=== PATIENT | male | born 1975 | race African-American/Black ===

== ENCOUNTER 2016-12-11 20:00 | Inpatient (IN) | payer OTHER ==
--- NOTE | ~2016-12-11 | PN ---
Unit #: [id number] #: [id number] Patient: SAUMYA HAMILTON [id number] [facility] [address] [place] [address] [id number] MR#: [id number] NAME: SAUMYA HAMILTON ROOM: P212 Age: 41 Sex: M Admission Date: 12/12/2016 : 1975 Attending Physician: Roney Tena M.D. Admitting Physician: Roney Tena M.D. Primary Care Physician: Gely Courtney PROGRESS NOTES DATE 12/13/2016 DISCUSSION The patient is abed today. He admits that he has been noncompliant with medications since his discharge from the hospital. He states that he does not wish to return home as he has "not been getting along with his mother," but I have (1) his expectations regarding what this facility can and cannot provide with regards to assistance with housing. Dictated by... Roney Tena M.D. CB/elaine TD: 12/13/2016 13:49 JOB #: [id number] [facility] PROGRESS NOTES Page 1 of 1 X Roney Tena MD PROGRESS NOTE
--- NOTE | ~2016-12-11 | PA ---
Unit #: [id number] #: [id number] Patient: SAUMYA HAMILTON [id number] [place] [address] [id number] I MR#: [id number] NAME: SAUMYA HAMILTON ROOM: [facility] Age: 41 Sex: M Admission Date: 12/12/2016 : 1975 Date of Assessment: 12/12/2016 Attending Physician: Roney Tena M.D. Admitting Physician: Roney Tena M.D. Primary Care Physician: Joey De Luna M.D. PSYCHIATRIC ASSESSMENT IDENTIFYING INFORMATION The patient is a 41-year-old male admitted to the [address] [place] [address] Unit with increasing abuse of psychoactive substances, suicidal ideation, and psychotic thinking. CHIEF COMPLAINT "I ain't getting along too good." INFORMANT(S) Patient, reliability is fair. HISTORY OF PRESENT ILLNESS The patient is a 41-year-old male who carries a diagnosis of schizoaffective disorder as well as polysubstance dependence. The patient has been recently not compliant with prescribed Seroquel and has been abusing multiple substances including alcohol, cocaine, and Lortabs. The patient reports that because of this behavior he has "not been getting along with his mother," and it was recommended that he come to this facility by his mother yesterday. The patient was last admitted to this facility in early July of this year under similar circumstances. He continues to endorse positive suicidal ideation when seen today. For more complete history of present illness, please refer to previously dictated notes. PAST PSYCHIATRIC HISTORY Reviewed, no changes. PAST MEDICAL HISTORY Reviewed, no changes. MEDICATIONS Seroquel. ALLERGIES Aspirin. FAMILY HISTORY Reviewed, no changes. SOCIAL HISTORY Reviewed, no changes. MENTAL STATUS EXAMINATION Unit #: [id number] #: [id number] Patient: SAUMYA HAMILTON Examination at this time reveals the patient to be a well-developed well-nourished male appearing stated age. He is in no apparent physical distress at the time of examination. He is mildly groggy, but arouses without difficulty. He is oriented in all spheres. The patient's mood is dysphoric, his affect blunted. Speech is generally well-coherent. There are no gross deficits in memory or cognition noted. The patient is generally cooperative during interview. He is currently endorsing positive suicidal ideation. He denies homicidal ideation. He reports positive auditory hallucinations. His judgment and insight appear to be somewhat impaired. No signs or symptoms of withdrawal are at this point in evidence. ASSETS AND LIABILITIES The patient's assets: Motivation for change. Liabilities: Ongoing substance use. Poor compliance with treatment. DIAGNOSTIC IMPRESSION 1. Schizoaffective disorder. 2. Cocaine use disorder. 3. Opioid use disorder. 4. Alcohol use disorder. TREATMENT PLAN The patient remains hospitalized for safety and stabilization. We have restarted the patient's previously prescribed Seroquel, and routine detoxification protocol for alcohol is in place. The patient will participate in appropriate order of milieu activities. ESTIMATED LENGTH OF STAY 5 to 7 days. Dictated by... Roney Tena M.D. RENATO/lopez TD: 12/12/2016 13:22 JOB #: [id number] PSYCHIATRIC ASSESSMENT Page 1 of 1 X Roney Tena MD X PSYCHIATRIC ASSESSMENT
--- NOTE | ~2016-12-11 | HP ---
Unit #: [id number] #: [id number] Patient: RUY HAMILTON [id number] [place] [address] [id number] I MR#: [id number] NAME: RUY HAMILTON ROOM: P212 Age: 41 Sex: M Admission Date: 12/12/2016 : 1975 Attending Physician: Roney Tena M.D. Admitting Physician: Roney Tena M.D. Primary Care Physician: Joey De Luna M.D. HISTORY AND PHYSICAL HISTORY OF PRESENT ILLNESS Ruy is a 41 year old admitted to [address] [place] [address] because of his continued polysubstance abuse which includes cocaine and smoking methamphetamine. PAST MEDICAL HISTORY 1. Long history of poly-illicit substance abuse. 2. History of alcohol abuse. 3. High blood pressure. 4. GERD. PAST SURGICAL HISTORY 1. Left inguinal hernia repair. 2. T and A. ALLERGIES Aspirin (rash). SOCIAL HISTORY He does not smoke. Drinks alcohol frequently to excess. Admits to a history of illicit substance abuse. FAMILY HISTORY Medically noncontributory. REVIEW OF SYSTEMS CONSTITUTIONAL: No fever or chills. HEENT: Denies any sore throat, ear pain or runny nose. CARDIOVASCULAR: Denies chest pain, irregular heart rhythm or palpitations. CHEST: Denies shortness of breath or cough. No hemoptysis. GASTROINTESTINAL: Denies nausea, vomiting, diarrhea or chronic constipation. ENDOCRINE: Denies history of increased thirst or urination. No recent significant weight loss or gain. GENITOURINARY: Denies dysuria, frequency, or hematuria. SKIN: Denies any rashes. HEMATOLOGIC: Denies history of increased bleeding or bruising. MUSCULOSKELETAL: Denies any hot, swollen joints. No generalized muscle pain. NEUROLOGIC: Denies problems with vision or speech. No frequent, severe headaches. No numbness, tingling or weakness in any extremities. Denies loss of bladder or bowel control. CURRENT MEDICATIONS Unit #: [id number] #: [id number] Patient: RUY HAMILTON Detox protocol. PHYSICAL EXAMINATION GENERAL: Alert, well-nourished, in no apparent distress. VITAL SIGNS: Blood pressure 120/74, heart rate 70, respirations 16, temperature 98.6. WEIGHT: 195. HEIGHT: 5 feet 6 inches. SKIN: Warm and dry without rash or lesion. HEENT: Normocephalic. TMs not viewed. Oral and nasal passages clear. Conjunctivae clear. PERRLA. EOMs intact. NECK: Supple without lymphadenopathy or thyromegaly. HEART: Regular rate and rhythm without murmur. LUNGS: Clear. ABDOMEN: Soft, nontender. : Not done. EXTREMITIES: No evidence of cyanosis, clubbing or edema. Moves all without focal deficit. NEUROLOGICAL: Grossly within normal limits. Cranial Nerves: II: Visual wetzel are intact. III, IV AND : Extraocular movements are intact. Pupils are equal, round and reactive to light. V: Facial sensation is grossly normal. VII: Facial movements and expression are normal. VIII: Auditory acuity grossly intact. IX, X: Uvula is midline. Phonation is normal. XI: Patient shrugs shoulders and turns head normally. XII: Tongue protrudes in the midline. Sensory and Motor Function: Sensory and motor sensation is grossly normal. Motor: moves all extremities well. Coordination: Gait is normal. Deep Tendon Reflexes: Intact. IMPRESSION Psychiatric admission. RECOMMENDATIONS PSYCHIATRIC: Per psychiatrist. MEDICAL: See no contraindications to participate in facility's activities. MEDICAL PROGNOSIS Good. MEDICAL CONDITION Stable. Dictated by... Carolyn De Leon PCassandraACassandra-Sukumar. for Gely Hill/reba TD: 12/12/2016 17:56 JOB #: [id number] Unit #: [id number] #: [id number] Patient: RUY HAMILTON HISTORY AND PHYSICAL Page 1 of 1 X Carolyn De Leon X HISTORY AND PHYSICAL
--- NOTE | ~2016-12-11 | PN ---
Unit #: [id number] #: [id number] Patient: SAUMYA HAMILTON [id number] [facility] [address] [place] [address] [id number] I MR#: [id number] NAME: SAUMYA HAMILTON ROOM: [facility][Note 3]2 Age: 41 Sex: M Admission Date: 12/12/2016 : 1975 Attending Physician: Roney Tena M.D. Admitting Physician: Roney Tena M.D. Primary Care Physician: Gely Courtney PROGRESS NOTES DATE 12/14/2016 DISCUSSION The patient is abed resting comfortably today. Staff reports that his participation within the therapeutic milieu has been poor but his detox has gone uneventfully. Dictated by... Roney Tena M.D. CB/reba TD: 12/14/2016 15:13 JOB #: [id number] [facility] PROGRESS NOTES Page 1 of 1 X Roney Tena MD X PROGRESS NOTE
--- NOTE | ~2016-12-11 | PN ---
Unit #: [id number] #: [id number] Patient: SAUMYA HAMILTON [id number] [facility] [address] [place] [address] [id number] MR#: [id number] NAME: SAUMYA HAMILTON ROOM: [facility] Age: 41 Sex: M Admission Date: 12/12/2016 : 1975 Attending Physician: Roney Tena M.D. Admitting Physician: Roney Tena M.D. Primary Care Physician: Gely Courtney PROGRESS NOTES DATE 12/15/2016 DISCUSSION The patient is abed, sleeping soundly, and cannot be aroused for interview. Staff reports no management issues but reports that that his participation within the therapeutic milieu does have much to be desired. Dictated by... Roney Tena M.D. CB/bzmelina TD: 12/15/2016 11:57 JOB #: [id number] [facility] PROGRESS NOTES Page 1 of 1 X Roney Tena MD X PROGRESS NOTE
--- NOTE | ~2016-12-11 | PN ---
Unit #: [id number] #: [id number] Patient: SAUMYA HAMILTON [id number] [facility] [address] [place] [address] [id number] I MR#: [id number] NAME: SAUMYA HAMILTON ROOM: P212 Age: 41 Sex: M Admission Date: 12/12/2016 : 1975 Attending Physician: Roney Tena M.D. Admitting Physician: Roney Tena M.D. Primary Care Physician: Gely Courtney PROGRESS NOTES DATE 12/16/2016 DISCUSSION The patient is more active within the therapeutic milieu and reports some reduction in suicidal ideation. We continue current treatment. Dictated by... Roney Tena M.D. CB/mo TD: 12/17/2016 02:17 JOB #: [id number] [facility] PROGRESS NOTES Page 1 of 1 X Roney Tena MD X PROGRESS NOTE
--- NOTE | ~2016-12-11 | DS ---
Unit #: [id number] #: [id number] Patient: SAUMYA HAMILTON [id number] [facility] [address] [place] [address] [id number] I MR#: [id number] NAME: SAUMYA HAMILTON ROOM: [facility] Age: 41 Sex: M Admission Date: 12/12/2016 : 1975 Discharge Date: 12/17/2016 Attending Physician: Roney Tena M.D. Primary Care Physician: Joey De Luna M.D. DISCHARGE SUMMARY REASON FOR ADMISSION The patient is a 41-year-old male admitted complaining of depressed mood and suicidal ideation. HOSPITAL COURSE The patient was admitted to the [facility] unit and placed on routine detoxification protocol for alcohol. He was restarted on previously prescribed Seroquel 300 mg at nighttime, which he tolerated without complaint. The patient's stay in the hospital was characterized by poor participation in the therapeutic milieu, but his psychotic symptoms did clear, as did his depressive symptoms. By 12/17/2016 he requested discharge and it was ordered. DISCHARGE DIAGNOSES 1. Schizoaffective disorder. 2. Alcohol use disorder. FOLLOWUP CARE Followup will take placed through the auspices of [facility]. DISCHARGE MEDICATIONS PROGNOSIS Fair, but (1) considerably should he continue to abuse alcohol. DIET AND ACTIVITY No restrictions placed on the patient at the time of discharge. Dictated by... Roney Tena M.D. CB/marcela TD: 12/19/2016 13:11 JOB #: [id number] Unit #: [id number] #: [id number] Patient: SAUMYA HAMILTON DISCHARGE SUMMARY Page 1 of 1 X Roney Tena MD X DISCHARGE SUMMARY
[2016-12-12 09:32] LABS: BASOPHIL# 0.1 X10e3 (0-0.3); BASOPHIL% 1.4 % (0-2.5); EOSINOPHIL# 0.9 X10e3 (0-0.7); EOSINOPHIL% 16.7 % (0.0-7.0); HEMATOCRIT 46.9 % (38.0-50.0); HEMOGLOBIN 15.2 gm/dL (13.0-16.0); LYMPHOCYTE# 2.2 X10e3 (1.0-3.5); LYMPHOCYTE% 43.4 % (17.0-45.0); MEAN CELL VOLUME 93.8 FL (83-96); MEAN CORPUSCULAR HEMOGLOBIN 30.3 PG (28-34); MEAN CORPUSCULAR HGB CONC 32.4 g/dL (30-36); MEAN PLATELET VOLUME 7.4 FL (6.5-11.5); MONOCYTE# 0.4 X10e3 (0-1.0); MONOCYTE% 7.7 % (3.0-12.0); NEUTROPHIL# 1.6 X10e3 (1.5-7.1); NEUTROPHIL% 30.8 % (40-75); PLATELET COUNT 226 X10e3 (140-420); RED CELL DISTRIBUTION WIDTH 14.8 % (11.0-15.5); WHITE BLOOD COUNT 5.2 X10e3 (4.0-10.5)
[2016-12-12 10:04] LABS: DIFF IND NO
[2016-12-12 11:09] LABS: ALBUMIN SERUM 3.3 g/dL (3.5-5.0); BILIRUBIN,TOTAL 0.5 mg/dL (0.2-2.0); CALCIUM SERUM 8.5 mg/dL (8.4-10.2); CREATININE SERUM 1.4 mg/dL (0.6-1.4); GLOM FILT RATE Estimated 72.4 mL/min (>60); POTASSIUM 4.2 mmol/L (3.5-5.1); PROTEIN TOTAL SERUM 6.2 g/dL (6.0-8.3)
[2016-12-13 10:01] LABS: URINE APPEARANCE CLEAR; URINE BILIRUBIN NEG (NEG); URINE BLOOD NEG (NEG); URINE COLOR YELLOW; URINE GLUCOSE NEG (NEG); URINE KETONE NEG (NEG); URINE LEUKOCYTE ESTERASE NEG (NEG); URINE NITRATE NEG (NEG); URINE PH 5.5 (5-8); URINE PROTEIN NEG (NEG); URINE SPECIFIC GRAVITY 1.011 (1.003-1.035); URINE UROBILINOGEN 0.2 MG/DL (NEG)
[2016-12-13 10:31] LABS: AMPHETAMINE NEG (NEG); BARBITURATES NEG (NEG); BENZODIAZEPINES NEG (NEG); COCAINE POS (NEG); MARIJUANA NEG (NEG); OPIATES NEG (NEG); TRICYCLIC ANTIDEPRESSANTS NEG (NEG); U METHADONE NEG (NEG)
== END 2016-12-17 14:08 | DRG 885 ==
LOC: P2S 12-12 00:36
PROVIDERS: Specialist
PROC: HZ2ZZZZ Detoxification Services for Substance Abuse Treatment (ICD-10-PCS; principal; 2016-12-12)
DX: F25.9 Schizoaffective disorder, unspecified (principal); I10 Essential (primary) hypertension; F10.10 Alcohol abuse, uncomplicated; F11.10 Opioid abuse, uncomplicated; F14.10 Cocaine abuse, uncomplicated; K21.9 Gastro-esophageal reflux disease without esophagitis
CPT/HCPCS: 80053; 80307; 81003; 85025; 86592